=== PATIENT | male | born 1960 | race Caucasian/White ===

== ENCOUNTER 2016-06-20 15:37 | Inpatient (IN) | payer BC ==
[2016-06-20] MEDS ORDERED: LACTULOSE* 30 ML UDC PO PRN (16:49)
[2016-06-20] MEDS ORDERED: Magnesium Hydroxide LIQ* 30 ML UDC PO PRN (16:49)
[2016-06-20] MEDS ORDERED: Bisacodyl SUPP* 10 MG SUPP PR PRN (16:49)
[2016-06-20] MEDS ORDERED: Acetaminophen TAB* 325 MG PO PRN (16:49)
[2016-06-20] MEDS: oxyCODONE TAB* 5 MG TAB PO PRN ×2 (17:55→22:33)
[2016-06-20] MEDS: Docusate CAP* 100 MG PO SCH (20:54)
[2016-06-20] MEDS: Enoxaparin(*) 30 MG/0.3 ML SYR SUBCUT SCH (20:54)
[2016-06-20] MEDS: Senna TAB PO SCH (21:31)
[2016-06-20] MEDS: Cyclobenzaprine TAB* 10 MG PO PRN (22:33)
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
[2016-06-21] MEDS: oxyCODONE TAB* 5 MG TAB PO PRN ×4 (02:33→20:00)
[2016-06-21] MEDS: Cyclobenzaprine TAB* 10 MG PO PRN ×3 (03:47→19:59)
[2016-06-21 07:47] LABS: Hematocrit 30 % (42-52); Mean Corpuscular HGB Conc 33 g/dl (31-36); Mean Corpuscular Hemoglobin 30 pg (27-31); Mean Corpuscular Volume 89 fL (80-94); Mean Platelet Volume 10 um3 (7.4-10.4); Red Blood Count 3.39 10^6/ul (4.0-5.4); Red Cell Distribution Width 14 % (10.5-15); White Blood Count 14.9 10^3/ul (3.5-10.8)
[2016-06-21 07:57] LABS: Albumin 3.5 g/dL (3.2-5.2); BUN/Creatinine Ratio 25.8 (8-20); Calcium 8.7 mg/dL (8.6-10.3); EGFR African American 113.7 (>60); EGFR Non-African American 88.4 (>60); Globulin 3.1 g/dL (2-4); Potassium 3.6 mmol/L (3.5-5.0); Total Bilirubin 2.5 mg/dL (0.2-1.0); Total Protein 6.6 g/dL (6.4-8.9)
[2016-06-21] MEDS: Hydrochlorothiazide TAB* 25 MG PO SCH (08:45)
[2016-06-21] MEDS: Docusate CAP* 100 MG PO SCH ×2 (08:45→20:21)
[2016-06-21] MEDS: Enoxaparin(*) 30 MG/0.3 ML SYR SUBCUT SCH ×2 (08:49→20:02)
[2016-06-21 10:07] LABS: Urine Bilirubin Negative (Negative); Urine Glucose Negative (Negative); Urine Nitrite Negative (Negative)
--- NOTE | 2016-06-21 12:55 | RAD ---
Indication: Right shoulder pain. 3 views of the right shoulder demonstrates AC joint arthritis. No fracture or dislocation is noted. No other bone or joint abnormality is noted. IMPRESSION: AC joint arthritis without evidence of fracture.
[2016-06-21] MEDS: Senna TAB PO SCH (19:58)
[2016-06-22] MEDS: oxyCODONE TAB* 5 MG TAB PO PRN ×5 (00:06→18:37)
[2016-06-22] MEDS: Cyclobenzaprine TAB* 10 MG PO PRN ×3 (05:34→21:12)
[2016-06-22] MEDS: Docusate CAP* 100 MG PO SCH ×2 (09:04→21:11)
[2016-06-22] MEDS: Hydrochlorothiazide TAB* 25 MG PO SCH (09:04)
[2016-06-22] MEDS: Enoxaparin(*) 30 MG/0.3 ML SYR SUBCUT SCH ×2 (09:06→21:14)
[2016-06-22] MEDS: Senna TAB PO SCH (21:11)
[2016-06-23] MEDS: oxyCODONE TAB* 5 MG TAB PO PRN ×5 (01:44→23:50)
[2016-06-23] MEDS: Hydrochlorothiazide TAB* 25 MG PO SCH (08:23)
[2016-06-23] MEDS: Lisinopril TAB* 5 MG PO SCH (08:23)
[2016-06-23] MEDS: Docusate CAP* 100 MG PO SCH ×2 (08:24→21:29)
[2016-06-23] MEDS: Enoxaparin(*) 30 MG/0.3 ML SYR SUBCUT SCH ×2 (08:24→21:29)
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
[2016-06-23] MEDS: Senna TAB PO SCH (21:29)
[2016-06-24] MEDS: oxyCODONE TAB* 5 MG TAB PO PRN ×4 (05:38→20:33)
[2016-06-24] MEDS: Lisinopril TAB* 5 MG PO SCH (08:29)
[2016-06-24] MEDS: Hydrochlorothiazide TAB* 25 MG PO SCH (08:29)
[2016-06-24] MEDS: Enoxaparin(*) 30 MG/0.3 ML SYR SUBCUT SCH ×2 (08:32→20:34)
[2016-06-24] MEDS: Docusate CAP* 100 MG PO SCH ×2 (08:33→20:36)
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
[2016-06-24] MEDS: Cyclobenzaprine TAB* 10 MG PO PRN (13:34)
[2016-06-24] MEDS: Senna TAB PO SCH (20:36)
[2016-06-25] MEDS: oxyCODONE TAB* 5 MG TAB PO PRN ×5 (00:38→21:13)
[2016-06-25 07:02] LABS: Hematocrit 32 % (42-52); Hemoglobin 10.5 g/dl (14.0-18.0); Mean Corpuscular HGB Conc 33 g/dl (31-36); Mean Corpuscular Hemoglobin 29 pg (27-31); Mean Corpuscular Volume 87 fL (80-94); Mean Platelet Volume 10 um3 (7.4-10.4); Red Blood Count 3.66 10^6/ul (4.0-5.4); Red Cell Distribution Width 14 % (10.5-15); White Blood Count 14.5 10^3/ul (3.5-10.8)
[2016-06-25 07:30] LABS: Albumin 3.6 g/dL (3.2-5.2); BUN/Creatinine Ratio 29.2 (8-20); Calcium 9.3 mg/dL (8.6-10.3); EGFR African American 86.3 (>60); EGFR Non-African American 67.1 (>60); Globulin 3.5 g/dL (2-4); Potassium 3.8 mmol/L (3.5-5.0); Total Bilirubin 2.9 mg/dL (0.2-1.0); Total Protein 7.1 g/dL (6.4-8.9)
[2016-06-25] MEDS: Lisinopril TAB* 5 MG PO SCH (08:38)
[2016-06-25] MEDS: Docusate CAP* 100 MG PO SCH ×2 (08:39→21:12)
[2016-06-25] MEDS: Enoxaparin(*) 30 MG/0.3 ML SYR SUBCUT SCH ×2 (08:39→21:14)
[2016-06-25] MEDS: Hydrochlorothiazide TAB* 25 MG PO SCH (08:39)
[2016-06-25] MEDS: Cyclobenzaprine TAB* 10 MG PO PRN (08:39)
[2016-06-25 12:02] LABS: Direct Bilirubin 0.8 mg/dL (0.03-0.18); Indirect Bilirubin 2.1 mg/dL (0.3-1.0)
--- NOTE | 2016-06-25 15:07 | RAD ---
INDICATION: T12 compression [id number] COMPARISON: None TECHNIQUE: Routine 2 view imaging was performed FINDINGS: Bones: There are no acute bony findings. There is no significant plain radiographic evidence of loss of vertebral height. There is moderate spurring about the lower thoracic spine Alignment: Mild kyphoscoliosis Disc spaces: The disc spaces are well-maintained Soft tissues: There are no soft tissue abnormalities. IMPRESSION: DEGENERATIVE CHANGES WITH MILD KYPHOSCOLIOSIS
[2016-06-25] MEDS: Senna TAB PO SCH (21:12)
[2016-06-26] MEDS: oxyCODONE TAB* 5 MG TAB PO PRN ×4 (02:05→20:28)
[2016-06-26 07:26] LABS: Albumin 3.6 g/dL (3.2-5.2); BUN/Creatinine Ratio 29.8 (8-20); Calcium 9.4 mg/dL (8.6-10.3); EGFR African American 85.5 (>60); EGFR Non-African American 66.4 (>60); Globulin 3.6 g/dL (2-4); Potassium 3.3 mmol/L (3.5-5.0); Total Bilirubin 2.7 mg/dL (0.2-1.0); Total Protein 7.2 g/dL (6.4-8.9)
[2016-06-26] MEDS: Lisinopril TAB* 5 MG PO SCH (08:47)
[2016-06-26] MEDS: Docusate CAP* 100 MG PO SCH ×2 (08:47→20:45)
[2016-06-26] MEDS: Hydrochlorothiazide TAB* 25 MG PO SCH (08:47)
[2016-06-26] MEDS: Enoxaparin(*) 30 MG/0.3 ML SYR SUBCUT SCH ×2 (08:47→20:33)
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
[2016-06-26] MEDS ORDERED: Hydrochlorothiazide TAB* 25 MG PO SCH (17:39)
[2016-06-26] MEDS: Potassium Chlor TAB* 20 MEQ TAB.ER PO SCH ×2 (20:27→20:44)
[2016-06-26] MEDS: Cyclobenzaprine TAB* 10 MG PO PRN (20:34)
[2016-06-26] MEDS: Senna TAB PO SCH (20:44)
[2016-06-27 07:25] LABS: Albumin 3.6 g/dL (3.2-5.2); BUN/Creatinine Ratio 28.3 (8-20); Calcium 9.3 mg/dL (8.6-10.3); Direct Bilirubin 0.6 mg/dL (0.03-0.18); EGFR African American 92.9 (>60); EGFR Non-African American 72.3 (>60); Globulin 3.6 g/dL (2-4); Indirect Bilirubin 1.8 mg/dL (0.3-1.0); Potassium 3.6 mmol/L (3.5-5.0); Total Bilirubin 2.4 mg/dL (0.2-1.0); Total Protein 7.2 g/dL (6.4-8.9)
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
[2016-06-27] MEDS: Docusate CAP* 100 MG PO SCH (09:36)
[2016-06-27] MEDS: Lisinopril TAB* 5 MG PO SCH (09:36)
[2016-06-27] MEDS: oxyCODONE TAB* 5 MG TAB PO PRN ×2 (09:37→15:52)
[2016-06-27] MEDS: Potassium Chlor TAB* 20 MEQ TAB.ER PO SCH (09:37)
[2016-06-27] MEDS: Enoxaparin(*) 30 MG/0.3 ML SYR SUBCUT SCH (09:38)
--- NOTE | 2016-06-27 10:55 | RAD ---
Indication: Bilateral rib pain. 3 views of the right ribs and 3 views of left ribs are reviewed. The lower left ribs are limited in evaluation however no gross fractures are noted. The lower right ribs is limited in evaluation however no fracture of the right ribs is identified. IMPRESSION: Limited evaluation of both lower ribs however no definite fracture is identified. The suggestion of a right pleural effusion noted.
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
[2016-06-27 13:35] LABS: Urine Bilirubin Negative (Negative); Urine Glucose Negative (Negative); Urine Nitrite Negative (Negative)
[2016-06-27 16:50] VITALS: BP 121/79
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
== END 2016-06-27 16:30 | disposition home or self-care (01) | DRG 860 ==
LOC: PMRU 15:37
PROVIDERS: ADMIT Physical Medicine & Rehabilitation; ATTEND Physical Medicine & Rehabilitation
PROC: F07Z5ZZ Bed Mobility Treatment (ICD-10-PCS; principal; 2016-06-20)
PROC: F07Z8ZZ Transfer Training Treatment (ICD-10-PCS; 2016-06-20)
PROC: F07Z9ZZ Gait Training/Functional Ambulation Treatment (ICD-10-PCS; 2016-06-20)
PROC: F08Z0ZZ Bathing/Showering Techniques Treatment (ICD-10-PCS; 2016-06-20)
PROC: F08Z1ZZ Dressing Techniques Treatment (ICD-10-PCS; 2016-06-20)
PROC: F08Z3ZZ Feeding/Eating Treatment (ICD-10-PCS; 2016-06-20)
DX: S22.081D Stable burst fracture of T11-T12 vertebra, subsequent encounter for fracture with routine healing (principal); I10 Essential (primary) hypertension; S22.061D Stable burst fracture of T7-T8 vertebra, subsequent encounter for fracture with routine healing; S22.071D Stable burst fracture of T9-T10 vertebra, subsequent encounter for fracture with routine healing; S22.49XD Multiple fractures of ribs, unspecified side, subsequent encounter for fracture with routine healing; S42.144D Nondisplaced fracture of glenoid cavity of scapula, right shoulder, subsequent encounter for fracture with routine healing; S42.201D Unspecified fracture of upper end of right humerus, subsequent encounter for fracture with routine healing; V29.9XXD Motorcycle rider (driver) (passenger) injured in unspecified traffic accident, subsequent encounter; R94.5 Abnormal results of liver function studies
CPT/HCPCS: 36415; 71110; 72070; 80053; 81003; 82248; 85025; A9270-GY; J1650

== ENCOUNTER 2017-04-27 08:13 | Emergency (ER) | payer BC ==
[2017-04-27 08:37] VITALS: BP 185/105
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
== END 2017-04-27 08:50 | disposition left against medical advice (07) ==
LOC: UCCORT 08:13
DX: R07.89 Other chest pain (principal); R10.13 Epigastric pain; R11.2 Nausea with vomiting, unspecified; I10 Essential (primary) hypertension; Z87.891 Personal history of nicotine dependence
CPT/HCPCS: 93005; 99212; G0463

== ENCOUNTER 2023-12-08 11:44 | Observation (INO) ==
[~2023-12-08 11:44] MED LIST: Metoclopramide 5 MG/ML VIAL (10 mg) IV PRN; NS 0.45% 1000 ml BAG 1,000 ML IV SCH; Naloxone 0.4 mg VIAL 0.4 mg/ml 1 ml VIAL IV PRN; Ondansetron 4 mg VIAL 2 MG/ML 2 ml VIAL IV PRN
[2023-12-08] MEDS ORDERED: ceFAZolin 2 GM PREMIX 2 GM/50 ML BAG ONE (12:07)
[2023-12-08] MEDS ORDERED: Tranexamic Acid 1 GM/100ML BAG 2,000 MG/200 ML BAG IV ONE (12:07)
[2023-12-08] MEDS ORDERED: Scopolamine 1 mg/72hr PATCH ONE (12:07)
[2023-12-08] MEDS: Scopolamine 1 mg/72hr PATCH TRANSDERM ONE (12:28)
[2023-12-08] MEDS: Acetaminophen IV 1 GM/100ML 1,000 MG/100 ML BAG IV ONE (12:28)
[2023-12-08] MEDS: Buffered Lidocaine 1% SYRIN 1 ml INTRADERM ONE (12:28)
[2023-12-08] MEDS: Lactated Ringers 1000 ml BAG 1,000 ML IV SCH ×2 (12:28→22:00)
[2023-12-08 12:36] LABS: Rapid COVID-19 Molecular Undetected (Undetected)
[2023-12-08] MEDS ORDERED: Lidocaine 2% PF 5 ML VIAL ONE (13:35)
[2023-12-08] MEDS ORDERED: Propofol 10 MG/ML 20 ML BTL ONE (13:35)
[2023-12-08] MEDS ORDERED: Rocuronium 50 mg VIAL 10 mg/ml 5 ml VIAL (50 mg) ONE (13:38)
[2023-12-08] MEDS ORDERED: KETAMINE HCL 10 MG/ML 20 ml VIAL (200 MG) ONE (13:38)
[2023-12-08] MEDS ORDERED: fentaNYL 250 mcg/5 ml 50 MCG/ML 5 ml VIAL (250 MCG) ONE (13:38)
[2023-12-08] MEDS ORDERED: ROPIVACAINE 5 MG/ML 30 ML BTL (0.5%) ONE (15:05)
[2023-12-08] MEDS ORDERED: Midazolam 2 mg/2 ml VIAL 1 mg/ml 2 ml VIAL (2 mg) ONE (15:26)
[2023-12-08] MEDS ORDERED: HYDROmorphone 0.5 MG/0.5 ML SYRINGE ONE ×2 (15:53→16:49)
[2023-12-08] MEDS ORDERED: Ondansetron 4 mg VIAL 2 MG/ML 2 ml VIAL ONE (16:29)
[2023-12-08] MEDS ORDERED: Dexamethasone IV 4 MG/ML VIAL 1 ml VIAL ONE (16:29)
[2023-12-08] MEDS ORDERED: fentaNYL 100 mcg/2 ml 50 MCG/ML VIAL ONE ×2 (16:43→18:48)
[2023-12-08] MEDS ORDERED: Esmolol 10 MG/ML 10 ML (100 mg) IV ONE (16:46)
[2023-12-08] MEDS ORDERED: Ondansetron ODT 4 mg TAB 4 MG TAB PO PRN (18:20)
[2023-12-08] MEDS ORDERED: Lactulose 30 ml UDC PO PRN (18:20)
[2023-12-08] MEDS ORDERED: Ondansetron 4 mg VIAL 2 MG/ML 2 ml VIAL IV PRN (18:20)
[2023-12-08] MEDS ORDERED: Morphine 2 MG/ML SYRINGE IV PRN (18:20)
[2023-12-08] MEDS ORDERED: Magnesium Hydroxide LIQ 30 ML UDC PO PRN (18:20)
[2023-12-08] MEDS ORDERED: Calcium Carb (TUMS) 500 mg CHEW TAB PO PRN (18:20)
[2023-12-08] MEDS: fentaNYL 100 mcg/2 ml 50 MCG/ML VIAL IV PRN (19:18)
[2023-12-08] MEDS: Magnesium Hydroxide LIQ 30 ML UDC PO SCH (21:57)
[2023-12-08] MEDS: ceFAZolin 2 GM PREMIX 2 GM/50 ML BAG IV SCH (23:45)
[2023-12-09 06:28] LABS: Hematocrit 38.1 % (38-53); Hemoglobin 12.9 g/dL (13.2-16.3); Mean Platelet Volume 10.1 fL (7.5-11.2); Platelet Count 199 10^3/uL (150-450)
[2023-12-09 06:47] LABS: Calcium 8.6 mg/dL (8.6-10.3); Creatinine, Serum 1.22 mg/dL (0.67-1.17); Potassium 4.3 mmol/L (3.5-5.0); eGFR CKD-EPI 66.6 (>60)
[2023-12-09] MEDS: Aspirin EC 81 mg TAB.EC (enteric coated) PO SCH (08:03)
[2023-12-09] MEDS: Vitamin THERAPEUTIC TAB PO SCH (08:03)
[2023-12-09 14:25] VITALS: BP 118/75
== END 2023-12-09 17:20 | disposition home or self-care (01) ==
LOC: SSU 11:44 → OR 11:44
PROVIDERS: ADMIT Orthopaedic Surgery Adult Reconstructive Orthopaedic Surgery; ATTEND Orthopaedic Surgery Adult Reconstructive Orthopaedic Surgery